=== PATIENT | female | born 1990 | race American Indian/Alaskan Native ===

== ENCOUNTER 2021-07-29 20:11 | Emergency (ER) | payer OTHER ==
[2021-07-29] MEDS ORDERED: Labetalol 100 MG Tab PO ONE (21:07)
[2021-07-29 21:20] VITALS: PULSE 88
--- NOTE | 2021-07-29 21:31 | EDM.PDOC ---
ED HPI GENERAL MEDICAL PROBLEM - General Chief Complaint: Abdominal Pain Stated Complaint: LUMP ON STOMACH Time Seen by Provider: 07/29/21 20:30 Source of Information: Reports: Patient History Limitations: Reports: No Limitations - History of Present Illness INITIAL COMMENTS - FREE TEXT/NARRATIVE: ED with c/o abdominal pain in area of known hernia. no nausea or vomiting. 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 Hx umbilcial hernia since last delivery 10 years ago. Has not seen surgeon. No nause vomiting or fever. BP elevated. States known high blood pressure and is supposed to be on medication but does not follow with Primary care. No headache sx Admits smoking, multiple energy drinks per day. increasing intermittent use of alcohol last drank 3 days ago. Middle Abdomen Pain Score (Numeric/FACES): 5 - Related Data Allergies Allergy/AdvReac Type Severity Reaction Status Date / Time No Known Allergies Allergy Verified 07/29/21 20:40 Home Meds: Home Meds . 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: Hematologic History: Reports: Anemia - Past Surgical History GI Surgical History: Reports: Appendectomy Social & Family History - Family History Family Medical History: No Pertinent Family History - Tobacco Use Tobacco Use Status *Q: Current Every Day Tobacco User Years of Tobacco use: 15 Packs/Tins Daily: 0.5 Used Tobacco, but Quit: No Second Hand Smoke Exposure: Yes - Caffeine Use Caffeine Use: Reports: Coffee, Soda - Alcohol Use Days Per Week of Alcohol Use: 1 Number of Drinks Per Day: 1 Total Drinks Per Week: 1 - Recreational Drug Use Recreational Drug Use: No ED ROS GENERAL - Review of Systems Review Of Systems: Comprehensive ROS is negative, except as noted in HPI. ED EXAM, GI/ABD - Physical Exam Exam: See Below Exam Limited By: No Limitations General Appearance: Alert, Mild Distress Ears: Normal External Exam, Hearing Grossly Normal Throat/Mouth: Normal Inspection Head: Atraumatic, Normocephalic Neck: Normal Inspection Respiratory/Chest: No Respiratory Distress, Normal Breath Sounds Cardiovascular: Normal Peripheral Pulses, Regular Rate, Rhythm GI/Abdominal Exam: Normal Bowel Sounds, Soft, Tender (mild upper periumbical pea size firm [place] mobile ) Back Exam: Normal Inspection Extremities: Normal Inspection Neurological: Alert, Oriented, CN II-XII Intact, Normal Cognition, Normal Gait Psychiatric: Normal Affect, Normal Mood Skin Exam: Warm, Dry, Intact, Normal Color Course - Vital Signs Last Recorded V/S: Last Vital Signs Temp 98.1 F 07/29/21 20:30 Pulse 88 07/29/21 21:41 Resp 16 07/29/21 21:41 BP 149/104 H 07/29/21 21:41 Pulse Ox 100 07/29/21 21:41 - Orders/Labs/Meds Meds: Medications Discontinued Medications Generic Name Dose Route Start Last Admin Trade Name Carie PRN Reason Stop Dose Admin Labetalol HCl 50 mg 07/29/21 21:07 07/29/21 21:19 Labetalol 100 Mg Tab PO 07/29/21 21:08 50 mg ONETIME ONE Administration Departure - Departure Time of Disposition: 21:27 Disposition: Home, Self-Care 01 Condition: Good Clinical Impression: Umbilical hernia Qualifiers: Obstruction and gangrene presence: without obstruction or gangrene Qualified Code(s): K42.9 - Umbilical hernia without obstruction or gangrene - Discharge Information *PRESCRIPTION DRUG MONITORING PROGRAM REVIEWED*: No *COPY OF PRESCRIPTION DRUG MONITORING REPORT IN PATIENT DENNIS: No Instructions: Umbilical Hernia, Adult, Hypertension, Adult Forms: ED Department Discharge Additional Instructions: clinic follow up this week labetolol 50mg twic edaily #5 limit sodium decrease tobacco use abstain from drinking energy drinks tylenol 500mg every 4 hours as needed for discomfort Sepsis Event Note (ED) - Evaluation Sepsis Screening Result: No Definite Risk - Focused Exam Vital Signs: Vital Signs Temp Pulse Pulse Resp BP BP Pulse Ox 07/29/21 21:41 88 16 149/104 H 100 07/29/21 21:19 88 122/88 07/29/21 20:30 98.1 F 102 H 18 144/106 H 97
[2021-07-29 21:42] VITALS: BP 149/104
== END 2021-07-29 21:42 | disposition home or self-care (01) ==
LOC: DL.ED 20:11
DX: K42.9 Umbilical hernia without obstruction or gangrene (principal); I10 Essential (primary) hypertension; J45.909 Unspecified asthma, uncomplicated; Z72.0 Tobacco use
CPT/HCPCS: 99283; A9270

== ENCOUNTER 2021-07-31 02:01 | Emergency (ER) | payer OTHER ==
[2021-07-31] MEDS ORDERED: Sodium Chloride 0.9% 10 ML Syringe FLUSH PRN ×2 (02:04→02:07)
[2021-07-31] MEDS ORDERED: Activated Charcoal/Water Susp 50 GM/240 ML Tube PO ONE (02:06)
--- NOTE | 2021-07-31 02:26 | PCM.EKG ---
#1 Interpretation EKG Date: 07/31/21 Time: 02:17 Rhythm: NSR Rate (Beats/Min): 86 [place]: Normal P-Wave: Present QRS: Normal ST-T: Normal QT: Normal (Early repol on ST segment)
--- NOTE | 2021-07-31 02:29 | EDM.PDOCBH ---
ED HPI GENERAL MEDICAL PROBLEM - General Chief Complaint: Drug or Alcohol Abuse Stated Complaint: POSSIBLE OD Time Seen by Provider: 07/31/21 02:20 Source of Information: Reports: Patient History Limitations: Reports: No Limitations - History of Present Illness INITIAL COMMENTS - FREE TEXT/NARRATIVE: Patient is brought to the emergency department today by her boyfriend with gerry engel of an overdose. This patient approximately 1 hour prior to arrival took a 7-day course of amoxicillin half a tablet of labetalol and a half a tablet of Suboxone an attempt to kill her self. She has never attempted to harm herself in the past. She denies taking any Tylenol or NSAIDs. She denies any other recreational drug use or alcohol usage. She relates she has been struggling with her father's and she misses him so she took these medications in an attempt to kill himself so she will have to deal with this anymore. She denies any chest pain shortness of breath or difficulty breathing. No fever no chills. She did make herself vomit shortly after she took these medicines. She has no abdominal pain no nausea or vomiting at this time. No hematuria dysuria urinary frequency. No black or tarry stools. She was on Suboxone for about a year and then was weaned off she attempted to keep getting more Suboxone although she was unable to get the prescriptions for it so she has been buying it off the street. - Related Data Allergies Allergy/AdvReac Type Severity Reaction Status Date / Time No Known Allergies Allergy Verified 07/31/21 02:26 Home Meds: Home Meds . 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 ED EXAM, BEHAVIORAL HEALTH - Physical Exam Exam: See Below Exam Limited By: No Limitations General Appearance: Alert, WD/WN, No Apparent Distress, Anxious, Thin. No: Obtunded Eye Exam: Bilateral Eye: EOMI, PERRL Ears: Normal External Exam Nose: Normal Inspection Throat/Mouth: Normal Inspection Head: Atraumatic, Normocephalic Neck: Normal Inspection, Supple, Non-Tender, Full Range of Motion Respiratory/Chest: No Respiratory Distress, Lungs Clear, Normal Breath Sounds, No Accessory Muscle Use, Chest Non-Tender Cardiovascular: Normal Peripheral Pulses, Regular Rate, Rhythm GI/Abdominal: Normal Bowel Sounds, Soft, Non-Tender (Female) Exam: Deferred Rectal (Female) Exam: Deferred Back Exam: Normal Inspection, Full Range of Motion. No: CVA Tenderness (L), CVA Tenderness (R) Extremities: Normal Inspection, Normal Range of Motion, Non-Tender, No Pedal Edema, Normal Capillary Refill Neurological: Alert, CN II-XII Intact, Normal Cognition, Normal Reflexes, No Motor/Sensory Deficits, Oriented x 3 Psychiatric: Alert, Normal Cognition, Oriented, Flat Affect, Tearful, Poor Eye Contact, Withdrawn, Suicidal Plan, Suicidal Thoughts. No: Agitated, Disoriented, Inattentive, Flight of Ideas, Homicidal Thoughts, Phobic, Tangential Thoughts, Auditory Hallucinations, Visual Hallucinations, Grandiose Thoughts, Pressured Speech, Paranoid Thoughts, Threatening Behavior Skin Exam: Warm, Dry, Intact, Normal color, No rash COURSE, BEHAVIORAL HEALTH COMP - Course Vital Signs: Last Vital Signs Temp 97.9 F 07/31/21 02:24 Pulse 97 07/31/21 06:19 Resp 14 07/31/21 06:19 BP 109/72 07/31/21 06:19 Pulse Ox 94 L 07/31/21 06:19 Orders, Labs, Meds: Active Orders 24 hr Category Date Time Status Peripheral IV Care [RC] . DIRECTED Care 07/31/21 02:05 Active Peripheral IV Care [RC] . DIRECTED Care 07/31/21 02:07 Active Sodium Chloride 0.9% [Saline Flush] Med 07/31/21 02:04 Active 10 ml FLUSH ASDIRECTED PRN Sodium Chloride 0.9% [Saline Flush] Med 07/31/21 02:07 Active 10 ml FLUSH ASDIRECTED PRN Peripheral IV Insertion Adult [OM.PC] Stat Oth 07/31/21 02:04 Ordered Peripheral IV Insertion Adult [OM.PC] Stat Oth 07/31/21 02:07 Ordered Medication Orders Sodium Chloride (Sodium Chloride 0.9% 10 Ml Syringe) 10 ml FLUSH ASDIRECTED PRN PRN Reason: Keep Vein Open Sodium Chloride (Sodium Chloride 0.9% 10 Ml Syringe) 10 ml FLUSH ASDIRECTED PRN PRN Reason: Keep Vein Open Laboratory Tests 07/31/21 07/31/21 07/31/21 Range/Units 02:12 02:12 02:12 WBC 8.6 (5.0-10.0) 10^3/uL RBC 4.27 (4.2-5.4) 10^6/uL Hgb 12.9 D (12.0-16.0) g/dL Hct 38.6 (37.0-47.0) % MCV 90.4 (80-100) fL MCH 30.2 (27.0-34.0) pg MCHC 33.4 (33.0-35.0) g/dL Plt Count 325 (150-450) 10^3/uL Neut % (Auto) 55.9 (42.2-75.2) % Lymph % (Auto) 30.2 (20.5-50.1) % [place] % (Auto) 9.7 H (2-8) % Eos % (Auto) 3.6 H (1.0-3.0) % Baso % (Auto) 0.6 (0.0-1.0) % Sodium 140 (136-145) mmol/L Potassium 3.6 (3.5-5.1) mmol/L Chloride 104 (98-107) mmol/L Carbon Dioxide 26 (21-32) mmol/L Anion Gap 13.6 H (7-13) mEq/L BUN 19 H (7-18) mg/dL Creatinine 0.93 (0.55-1.02) mg/dL Est Cr Clr Drug Dosing 71.84 mL/min Estimated GFR (MDRD) > 60 BUN/Creatinine Ratio 20.4 (No establ ref range) Glucose 104 H (70-99) mg/dL Calcium 8.4 L (8.5-10.1) mg/dL Total Bilirubin 0.3 (0.2-1.0) mg/dL AST 20 (15-37) U/L ALT 26 (14-59) U/L Alkaline Phosphatase 67 (46-116) U/L Total Protein 7.6 (6.4-8.2) g/dL Albumin 3.9 (3.4-5.0) g/dL Globulin 3.7 Albumin/Globulin Ratio 1.1 Lipase 63 L (73-393) U/L Urine Color (YELLOW) Urine Appearance (CLEAR) Urine pH (5.0-9.0) Ur Specific [place] (1.005-1.030) Urine Protein (NEGATIVE) Urine Glucose (UA) (NEGATIVE) Urine Ketones (NEGATIVE) Urine Occult Blood (NEGATIVE) Urine Nitrite (NEGATIVE) Urine Bilirubin (NEGATIVE) Urine Urobilinogen (0.2-1.0) mg/dL Ur Leukocyte Esterase (NEGATIVE) Salicylates < 2.8 L (2.8-20(Therapeutic)) mg/dL Urine Opiates Screen (NEGATIVE) Ur Oxycodone Screen (NEGATIVE) Urine Methadone Screen (NEGATIVE) Acetaminophen 0 L (10-30 (Therapeutic)) ug/mL Ur Barbiturates Screen (NEGATIVE) U Tricyclic Antidepress (NEGATIVE) Ur Phencyclidine Scrn (NEGATIVE) Ur Amphetamine Screen (NEGATIVE) U Methamphetamines Scrn (NEGATIVE) Urine MDMA Screen (NEGATIVE) U Benzodiazepines Scrn (NEGATIVE) Urine Cocaine Screen (NEGATIVE) U Marijuana (THC) Screen (NEGATIVE) Ethyl Alcohol < 3 (0) mg/dL 07/31/21 07/31/21 07/31/21 Range/Units 05:02 05:02 05:05 WBC (5.0-10.0) 10^3/uL RBC (4.2-5.4) 10^6/uL Hgb (12.0-16.0) g/dL Hct (37.0-47.0) % MCV (80-100) fL MCH (27.0-34.0) pg MCHC (33.0-35.0) g/dL Plt Count (150-450) 10^3/uL Neut % (Auto) (42.2-75.2) % Lymph % (Auto) (20.5-50.1) % [place] % (Auto) (2-8) % Eos % (Auto) (1.0-3.0) % Baso % (Auto) (0.0-1.0) % Sodium 139 (136-145) mmol/L Potassium 3.5 (3.5-5.1) mmol/L Chloride 105 (98-107) mmol/L Carbon Dioxide 26 (21-32) mmol/L Anion Gap 11.5 (7-13) mEq/L BUN 17 (7-18) mg/dL Creatinine 0.72 (0.55-1.02) mg/dL Est Cr Clr Drug Dosing 92.79 mL/min Estimated GFR (MDRD) > 60 BUN/Creatinine Ratio (No establ ref range) Glucose 121 H (70-99) mg/dL Calcium 8.0 L (8.5-10.1) mg/dL Total Bilirubin (0.2-1.0) mg/dL AST (15-37) U/L ALT (14-59) U/L Alkaline Phosphatase (46-116) U/L Total Protein (6.4-8.2) g/dL Albumin (3.4-5.0) g/dL Globulin Albumin/Globulin Ratio Lipase (73-393) U/L Urine Color Yellow (YELLOW) Urine Appearance Turbid (CLEAR) Urine pH 7.0 (5.0-9.0) Ur Specific [place] 1.025 (1.005-1.030) Urine Protein Negative (NEGATIVE) Urine Glucose (UA) Negative (NEGATIVE) Urine Ketones Trace H (NEGATIVE) Urine Occult Blood Negative (NEGATIVE) Urine Nitrite Negative (NEGATIVE) Urine Bilirubin Negative (NEGATIVE) Urine Urobilinogen 0.2 (0.2-1.0) mg/dL Ur Leukocyte Esterase Negative (NEGATIVE) Salicylates < 2.8 L (2.8-20(Therapeutic)) mg/dL Urine Opiates Screen (NEGATIVE) Ur Oxycodone Screen (NEGATIVE) Urine Methadone Screen (NEGATIVE) Acetaminophen 0 L (10-30 (Therapeutic)) ug/mL Ur Barbiturates Screen (NEGATIVE) U Tricyclic Antidepress (NEGATIVE) Ur Phencyclidine Scrn (NEGATIVE) Ur Amphetamine Screen (NEGATIVE) U Methamphetamines Scrn (NEGATIVE) Urine MDMA Screen (NEGATIVE) U Benzodiazepines Scrn (NEGATIVE) Urine Cocaine Screen (NEGATIVE) U Marijuana (THC) Screen (NEGATIVE) Ethyl Alcohol (0) mg/dL 07/31/21 Range/Units 05:05 WBC (5.0-10.0) 10^3/uL RBC (4.2-5.4) 10^6/uL Hgb (12.0-16.0) g/dL Hct (37.0-47.0) % MCV (80-100) fL MCH (27.0-34.0) pg MCHC (33.0-35.0) g/dL Plt Count (150-450) 10^3/uL Neut % (Auto) (42.2-75.2) % Lymph % (Auto) (20.5-50.1) % [place] % (Auto) (2-8) % Eos % (Auto) (1.0-3.0) % Baso % (Auto) (0.0-1.0) % Sodium (136-145) mmol/L Potassium (3.5-5.1) mmol/L Chloride (98-107) mmol/L Carbon Dioxide (21-32) mmol/L Anion Gap (7-13) mEq/L BUN (7-18) mg/dL Creatinine (0.55-1.02) mg/dL Est Cr Clr Drug Dosing mL/min Estimated GFR (MDRD) BUN/Creatinine Ratio (No establ ref range) Glucose (70-99) mg/dL Calcium (8.5-10.1) mg/dL Total Bilirubin (0.2-1.0) mg/dL AST (15-37) U/L ALT (14-59) U/L Alkaline Phosphatase (46-116) U/L Total Protein (6.4-8.2) g/dL Albumin (3.4-5.0) g/dL Globulin Albumin/Globulin Ratio Lipase (73-393) U/L Urine Color (YELLOW) Urine Appearance (CLEAR) Urine pH (5.0-9.0) Ur Specific [place] (1.005-1.030) Urine Protein (NEGATIVE) Urine Glucose (UA) (NEGATIVE) Urine Ketones (NEGATIVE) Urine Occult Blood (NEGATIVE) Urine Nitrite (NEGATIVE) Urine Bilirubin (NEGATIVE) Urine Urobilinogen (0.2-1.0) mg/dL Ur Leukocyte Esterase (NEGATIVE) Salicylates (2.8-20(Therapeutic)) mg/dL Urine Opiates Screen Negative (NEGATIVE) Ur Oxycodone Screen Negative (NEGATIVE) Urine Methadone Screen Negative (NEGATIVE) Acetaminophen (10-30 (Therapeutic)) ug/mL Ur Barbiturates Screen Negative (NEGATIVE) U Tricyclic Antidepress Negative (NEGATIVE) Ur Phencyclidine Scrn Negative (NEGATIVE) Ur Amphetamine Screen Positive H (NEGATIVE) U Methamphetamines Scrn Positive H (NEGATIVE) Urine MDMA Screen Positive H (NEGATIVE) U Benzodiazepines Scrn Negative (NEGATIVE) Urine Cocaine Screen Negative (NEGATIVE) U Marijuana (THC) Screen Negative (NEGATIVE) Ethyl Alcohol (0) mg/dL Medications Generic Name Dose Route Start Last Admin Trade Name Freq PRN Reason Stop Dose Admin Sodium Chloride 10 ml 07/31/21 02:04 Sodium Chloride 0.9% 10 Ml Syringe FLUSH ASDIRECTED PRN Keep Vein Open Sodium Chloride 10 ml 07/31/21 02:07 Sodium Chloride 0.9% 10 Ml Syringe FLUSH ASDIRECTED PRN Keep Vein Open Discontinued Medications Generic Name Dose Route Start Last Admin Trade Name Freq PRN Reason Stop Dose Admin Charcoal 50 gm 07/31/21 02:06 07/31/21 02:53 Activated Charcoal/Water Susp 50 Gm/240 Ml Tube PO 07/31/21 02:07 50 gm ONETIME ONE Administration Re-Assessment/Re-Exam: Although the patient stated she only took a small amount of labetalol as well as Suboxone. The concerns of the labetalol can be quite detrimental. This was ingested under an hour prior to arrival. The patient was given activated charcoal orally. Her EKG was unremarkable. Poison control was contacted and relayed her initial work-up that showed a negative Tylenol level and she is vitally stable. They recommend a repeat Tylenol and basic metabolic panel at 5:00. Her initial CBC is unremarkable. CMP with a mild elevation in anion gap at 13.6 glucose 104 calcium 8.4 normal liver enzymes lipase 63. Initial salicylate and acetaminophen is negative. Alcohol is negative. Her urine drug screen is positive for amphetamines methamphetamines and MDMA. There is no hallucinations or agitations. The patient is medically cleared at 0 530 following a repeat salicylate acetaminophen and metabolic panel. [facility] come and evaluate the patient. The patient agrees to go to the CRU with the Human service staff. She is medically cleared at this time. Advised no recreational drug usage. Contact for safety which the patient agrees to. Departure - Departure Time of Disposition: 06:29 Disposition: DC/Tfer to Other 70 Clinical Impression: Polysubstance abuse Suicide by drug overdose Qualifiers: Encounter type: initial encounter Qualified Code(s): T50.902A - Poisoning by unspecified drugs, medicaments and biological substances, intentional self-harm, initial encounter - Discharge Information Forms: ED Department Discharge Additional Instructions: With [facility] to the [facility]. No methamphatemine or Ectasy usage. Contract for safety with the CRU staff. Return to the ED if new or worsening symptoms. Sepsis Event Note (ED) - Evaluation Sepsis Screening Result: No Definite Risk - Focused Exam Vital Signs: Vital Signs Temp Pulse Resp BP Pulse Ox 07/31/21 06:19 97 14 109/72 94 L 07/31/21 04:01 87 14 122/95 H 95 07/31/21 02:24 97.9 F 91 18 152/121 H 95 - My Orders Last 24 Hours: My Active Orders 07/31/21 02:04 Sodium Chloride 0.9% [Saline Flush] 10 ml FLUSH ASDIRECTED PRN Peripheral IV Insertion Adult [OM.PC] Stat 07/31/21 02:05 Peripheral IV Care [RC] . DIRECTED 07/31/21 02:07 Peripheral IV Care [RC] . DIRECTED Sodium Chloride 0.9% [Saline Flush] 10 ml FLUSH ASDIRECTED PRN Peripheral IV Insertion Adult [OM.PC] Stat - Assessment/Plan Last 24 Hours: My Active Orders 07/31/21 02:04 Sodium Chloride 0.9% [Saline Flush] 10 ml FLUSH ASDIRECTED PRN Peripheral IV Insertion Adult [OM.PC] Stat 07/31/21 02:05 Peripheral IV Care [RC] . DIRECTED 07/31/21 02:07 Peripheral IV Care [RC] . DIRECTED Sodium Chloride 0.9% [Saline Flush] 10 ml FLUSH ASDIRECTED PRN Peripheral IV Insertion Adult [OM.PC] Stat
[2021-07-31 02:36] LABS: ANION GAP 13.6 mEq/L (7-13); CHLORIDE,CL 104 mmol/L (98-107); SODIUM,NA 140 mmol/L (136-145)
[2021-07-31 02:43] LABS: ACETAMINOPHEN 0 ug/mL (10-30 (Therapeutic))
[2021-07-31 05:19] LABS: AMPHETAMINES,URINE POSITIVE (NEGATIVE); BARBITURATES,URINE NEGATIVE (NEGATIVE); BENZODIAZEPINE,URINE NEGATIVE (NEGATIVE); MDMA (ECSTASY), URINE POSITIVE (NEGATIVE); METHADONE,URINE NEGATIVE (NEGATIVE); METHAMPHETAMINES,URINE POSITIVE (NEGATIVE); OPIATES,URINE NEGATIVE (NEGATIVE); OXYCODONE,URINE NEGATIVE (NEGATIVE); PHENCYCLIDINE,URINE NEGATIVE (NEGATIVE); TCA,URINE NEGATIVE (NEGATIVE)
[2021-07-31 05:24] LABS: ANION GAP 11.5 mEq/L (7-13); CHLORIDE,CL 105 mmol/L (98-107); SODIUM,NA 139 mmol/L (136-145)
[2021-07-31 05:29] LABS: ACETAMINOPHEN 0 ug/mL (10-30 (Therapeutic))
[2021-07-31 06:20] VITALS: BP 109/72; PULSE 97
== END 2021-07-31 07:17 | disposition other institution (70) ==
LOC: DL.ED 02:01
DX: T36.0X2A Poisoning by penicillins, intentional self-harm, initial encounter (principal); T40.492A Poisoning by other synthetic narcotics, intentional self-harm, initial encounter; F19.10 Other psychoactive substance abuse, uncomplicated; I10 Essential (primary) hypertension
CPT/HCPCS: 36415; 80048; 80053; 80143; 80179; 80305-QW; 80307; 81003; 83690; 85025; 93005; 99285-25

== ENCOUNTER 2022-12-29 17:18 | Emergency (ER) | payer MEDICAID ==
[2022-12-29] MEDS ORDERED: Sodium Chloride 0.9% 10 ML Syringe FLUSH PRN (17:33)
[2022-12-29] MEDS ORDERED: Albuterol/Ipratropium 3.0-0.5 MG/3 ML Neb Soln NEB ONE (17:35)
[2022-12-29 18:12] LABS: ANION GAP 14.7 mEq/L (7-13); CHLORIDE,CL 106 mmol/L (98-107); SODIUM,NA 140 mmol/L (136-145)
[2022-12-29 18:20] LABS: ESTIMATED GFR 119 mL/min (>=60)
[2022-12-29 19:22] VITALS: BP 138/93; PULSE 94
[2022-12-29 19:22] LABS: AMPHETAMINES,URINE POSITIVE (NEGATIVE); BARBITURATES,URINE NEGATIVE (NEGATIVE); BENZODIAZEPINE,URINE NEGATIVE (NEGATIVE); MDMA (ECSTASY), URINE POSITIVE (NEGATIVE); METHADONE,URINE NEGATIVE (NEGATIVE); METHAMPHETAMINES,URINE POSITIVE (NEGATIVE); OPIATES,URINE NEGATIVE (NEGATIVE); OXYCODONE,URINE NEGATIVE (NEGATIVE); PHENCYCLIDINE,URINE NEGATIVE (NEGATIVE); TCA,URINE NEGATIVE (NEGATIVE)
== END 2022-12-29 19:50 ==
LOC: DL.ED 17:18
DX: D64.9 Anemia, unspecified (principal); I10 Essential (primary) hypertension
CPT/HCPCS: 36415; 36430; 71045; 80053; 80305-QW; 81001; 82607; 83540; 83550; 83605; 83735; 83880; 84145; 84484; 85025; 85610; 85730; 86140; 86850; 86900; 86901; 86920; 86922; 87086; 87088; 87186; 93005; 93010; 94640; 99284; 99285; J3490; J7620-GY; P9016

== ENCOUNTER 2023-06-11 18:42 | Emergency (ER) | payer MEDICAID | END 2023-06-11 19:06 | disposition left against medical advice (07) | LOC: DL.ED 18:42 | DX: Z53.21 Procedure and treatment not carried out due to patient leaving prior to being seen by health care provider (principal) ==

== ENCOUNTER 2023-12-04 22:02 | Emergency (ER) | payer MEDICAID ==
[2023-12-04 22:49] VITALS: BP 167/111; PULSE 84
[2023-12-04 22:59] LABS: BASOPHILS PERCENT AUTO 0.7 % (0.0-1.0); EOSINOPHILS PERCENT AUTO 4.4 % (1.0-3.0); HEMATOCRIT 32.2 % (37.0-47.0); HEMOGLOBIN 9.5 g/dL (12.0-16.0); LYMPHOCYTES PERCENT AUTO 29.6 % (20.5-50.1); MEAN CORPUSCULAR HEMOGLOBIN 20.9 pg (27.0-34.0); MEAN CORPUSCULAR HGB CONC 29.5 g/dL (33.0-35.0); MEAN CORPUSCULAR VOLUME 70.9 fL (80-100); MONOCYTES PERCENT AUTO 9.4 % (2-8); NEUTROPHILS PERCENT AUTO 55.9 % (42.2-75.2); PLATELET COUNT,PLT 581 10^3/uL (150-450); RED BLOOD CELL COUNT 4.54 10^6/uL (4.2-5.4)
[2023-12-04 23:19] LABS: ALBUMIN 3.2 g/dL (3.4-5.0); BILIRUBIN TOTAL 0.1 mg/dL (0.2-1.0); BUN/CREATININE RATIO 36.1 (No establ ref range); CALCIUM 8.1 mg/dL (8.5-10.1); CREATININE 0.61 mg/dL (0.55-1.02); EST CRCL DRUG DOSING (CG) 102.78 mL/min; MAGNESIUM 1.8 mg/dL (1.8-2.4); PROTEIN TOTAL,TP 7.2 g/dL (6.4-8.2)
[2023-12-04 23:22] LABS: A/G RATIO 0.8
[2023-12-04] MEDS ORDERED: GI Cocktail Oral Solution 30 ML PO ONE (23:26)
== END 2023-12-05 00:33 | disposition home or self-care (01) ==
LOC: DL.ED 22:02
DX: R07.2 Precordial pain (principal); I10 Essential (primary) hypertension; J45.909 Unspecified asthma, uncomplicated; F17.210 Nicotine dependence, cigarettes, uncomplicated; Z86.16 Personal history of COVID-19; Z90.49 Acquired absence of other specified parts of digestive tract; Z79.899 Other long term (current) drug therapy
CPT/HCPCS: 36415; 71045; 80053; 83690; 83735; 84484; 85025; 93005; 93010; 99284; 99285; A9270

== ENCOUNTER 2024-01-14 17:05 | Emergency (ER) | payer SELFPAY | END 2024-01-14 18:20 | LOC: DL.ED 17:05 | DX: Z53.21 Procedure and treatment not carried out due to patient leaving prior to being seen by health care provider (principal) ==

== ENCOUNTER 2024-03-05 20:47 | Emergency (ER) | payer SELFPAY | END 2024-03-05 22:30 | disposition left against medical advice (07) | LOC: DL.ED 20:47 | DX: Z53.21 Procedure and treatment not carried out due to patient leaving prior to being seen by health care provider (principal) ==

== ENCOUNTER 2024-05-24 21:36 | Emergency (ER) | payer MEDICAID ==
[2024-05-24] MEDS: Sodium Chloride 0.9% 10 ML Syringe FLUSH PRN (21:48)
[2024-05-24 21:57] LABS: BASOPHILS PERCENT AUTO 0.9 % (0.0-1.0); EOSINOPHILS PERCENT AUTO 1.6 % (1.0-3.0); LYMPHOCYTES PERCENT AUTO 31.4 % (20.5-50.1); MEAN CORPUSCULAR HEMOGLOBIN 18.7 pg (27.0-34.0); MEAN CORPUSCULAR HGB CONC 27.7 g/dL (33.0-35.0); MEAN CORPUSCULAR VOLUME 67.3 fL (80-100); MONOCYTES PERCENT AUTO 5.2 % (2-8); NEUTROPHILS PERCENT AUTO 60.9 % (42.2-75.2); PLATELET COUNT,PLT 719 10^3/uL (150-450); RED BLOOD CELL COUNT 2.57 10^6/uL (4.2-5.4); WHITE BLOOD CELL COUNT,WBC 8.5 10^3/uL (5.0-10.0)
[2024-05-24 22:06] LABS: HEMATOCRIT 17.3 % (37.0-47.0); HEMOGLOBIN 4.8 g/dL (12.0-16.0)
[2024-05-24 22:22] LABS: INR 0.9 (0.9-1.2); LACTIC ACID 1.1 mmol/L (0.4-2.0); PROTHROMBIN TIME 9.7 SEC (9.0-12.0); PTT,PARTIAL THROMBOPLSTIN TIME 21.5 SEC (22.0-34.0)
[2024-05-24 22:25] LABS: A/G RATIO 0.65; ALANINE AMINOTRANSFERASE,ALT 46 U/L (14-59); ALBUMIN 2.8 g/dL (3.4-5.0); ALKALINE PHOSPHATASE 99 U/L (46-116); ANION GAP 11.4 mEq/L (7-13); ASPARTATE AMNIOTRANSFERASE,AST 27 U/L (15-37); BILIRUBIN TOTAL 0.2 mg/dL (0.2-1.0); BLOOD UREA NITROGEN,BUN 21 mg/dL (7-18); BUN/CREATININE RATIO 20.4 (No establ ref range); CALCIUM 8.7 mg/dL (8.5-10.1); CARBON DIOXIDE,CO2 27 mmol/L (21-32); CHLORIDE,CL 102 mmol/L (98-107); CREATININE 1.03 mg/dL (0.55-1.02); EST CRCL DRUG DOSING (CG) 60.29 mL/min; ESTIMATED GFR 73 mL/min (>=60); ETHANOL BLOOD MEDICAL < 3 mg/dL (0); GLUCOSE RANDOM 114 mg/dL (70-99); MAGNESIUM 1.8 mg/dL (1.8-2.4); POTASSIUM,K 3.4 mmol/L (3.5-5.1); PROTEIN TOTAL,TP 7.1 g/dL (6.4-8.2); SODIUM,NA 137 mmol/L (136-145)
[2024-05-24 22:28] LABS: C-REACTIVE PROTEIN < 0.50 ng/dL (<=0.50)
[2024-05-25] LABS: FOLIC ACID 18.7 ng/mL (8.6-58.9); TSH ULTRASENSITIVE 6.61 uIU/mL (0.36-3.74)
[2024-05-25] MEDS: Furosemide 40 MG/4 ML VIAL IV ONE (01:32)
[2024-05-25] MEDS: Potassium Chloride 10 MEQ Tab.ER PO ONE (01:34)
[2024-05-25 02:14] LABS: AMPHETAMINES,URINE POSITIVE (NEGATIVE); BARBITURATES,URINE NEGATIVE (NEGATIVE); BENZODIAZEPINE,URINE NEGATIVE (NEGATIVE); MDMA (ECSTASY), URINE NEGATIVE (NEGATIVE); METHADONE,URINE NEGATIVE (NEGATIVE); METHAMPHETAMINES,URINE POSITIVE (NEGATIVE); OPIATES,URINE NEGATIVE (NEGATIVE); OXYCODONE,URINE NEGATIVE (NEGATIVE); PHENCYCLIDINE,URINE NEGATIVE (NEGATIVE); TCA,URINE NEGATIVE (NEGATIVE)
[2024-05-25] MEDS: Ibuprofen 600 MG Tab PO ONE (04:15)
[2024-05-25 07:25] LABS: BASOPHILS PERCENT AUTO 0.8 % (0.0-1.0); EOSINOPHILS PERCENT AUTO 3.1 % (1.0-3.0); HEMATOCRIT 29.2 % (37.0-47.0); HEMOGLOBIN 9.1 g/dL (12.0-16.0); MEAN CORPUSCULAR HEMOGLOBIN 24.1 pg (27.0-34.0); MEAN CORPUSCULAR HGB CONC 31.2 g/dL (33.0-35.0); MEAN CORPUSCULAR VOLUME 77.2 fL (80-100); MONOCYTES PERCENT AUTO 11.6 % (2-8); NEUTROPHILS PERCENT AUTO 59.5 % (42.2-75.2); PLATELET COUNT,PLT 456 10^3/uL (150-450); RED BLOOD CELL COUNT 3.78 10^6/uL (4.2-5.4); WHITE BLOOD CELL COUNT,WBC 7.5 10^3/uL (5.0-10.0)
[2024-05-25] MEDS: Ferrous Sulfate 325 MG Tab PO ONE (08:19)
[2024-05-25 08:32] VITALS: BP 155/108; PULSE 80
== END 2024-05-25 08:25 | disposition home or self-care (01) ==
LOC: DL.ED 21:36
DX: D50.9 Iron deficiency anemia, unspecified (principal); E87.6 Hypokalemia; F15.10 Other stimulant abuse, uncomplicated; R94.6 Abnormal results of thyroid function studies; I10 Essential (primary) hypertension; Z79.899 Other long term (current) drug therapy; Z86.16 Personal history of COVID-19
CPT/HCPCS: 36415; 36430; 71045; 80053; 80305; 80307; 81025; 82272; 82607; 82728; 82746; 83605; 83735; 84443; 84484; 85025; 85610; 85730; 86140; 86850; 86900; 86901; 86920; 86922; 93005; 93010; 96374; 99285; A9270; J1940; P9016; J3490

== ENCOUNTER 2024-06-11 01:28 | Emergency (ER) | payer MEDICAID ==
[2024-06-11] MEDS: Sodium Chloride 0.9% 10 ML Syringe FLUSH PRN (02:16)
[2024-06-11] MEDS: Sodium Chloride 0.9% 1,000 ML IV ONE (02:16)
[2024-06-11 02:21] LABS: BASOPHILS PERCENT AUTO 0.3 % (0.0-1.0); EOSINOPHILS PERCENT AUTO 2.1 % (1.0-3.0); HEMATOCRIT 29.1 % (37.0-47.0); LYMPHOCYTES PERCENT AUTO 11.5 % (20.5-50.1); MEAN CORPUSCULAR HEMOGLOBIN 23.4 pg (27.0-34.0); MEAN CORPUSCULAR HGB CONC 30.9 g/dL (33.0-35.0); MEAN CORPUSCULAR VOLUME 75.6 fL (80-100); MONOCYTES PERCENT AUTO 14.1 % (2-8); PLATELET COUNT,PLT 467 10^3/uL (150-450); RED BLOOD CELL COUNT 3.85 10^6/uL (4.2-5.4); WHITE BLOOD CELL COUNT,WBC 14.5 10^3/uL (5.0-10.0)
[2024-06-11 02:24] LABS: APPEARANCE,URINE CLEAR (CLEAR); BILIRUBIN,URINE NEGATIVE (NEGATIVE); COLOR,URINE YELLOW (YELLOW); GLUCOSE,URINE NEGATIVE (NEGATIVE); KETONES,URINE NEGATIVE (NEGATIVE); LEUKOCYTE ESTERASE,URINE TRACE (NEGATIVE); NITRITE,URINE NEGATIVE (NEGATIVE); OCCULT BLOOD,URINE TRACE-INTACT (NEGATIVE); PROTEIN,URINE 100 (NEGATIVE)
[2024-06-11 02:37] LABS: BACTERIA,URINE MANY /HPF (0-FEW/HPF); EPITHELIAL CELLS,URINE FEW /HPF (NOT SEEN); WBC,URINE 20-30 /HPF (0-5/HPF)
[2024-06-11 02:50] LABS: ALBUMIN 2.6 g/dL (3.4-5.0); ANION GAP 12.1 mEq/L (7-13); BILIRUBIN TOTAL 0.5 mg/dL (0.2-1.0); BUN/CREATININE RATIO 19.8 (No establ ref range); CALCIUM 8.6 mg/dL (8.5-10.1); CREATININE 0.86 mg/dL (0.55-1.02); EST CRCL DRUG DOSING (CG) 72.21 mL/min; POTASSIUM,K 4.1 mmol/L (3.5-5.1); PROTEIN TOTAL,TP 7.4 g/dL (6.4-8.2); TSH ULTRASENSITIVE 1.42 uIU/mL (0.36-3.74)
[2024-06-11 03:03] LABS: A/G RATIO 0.54
[2024-06-11 03:15] LABS: INR 0.9 (0.9-1.2); PROTHROMBIN TIME 9.8 SEC (9.0-12.0)
[2024-06-11] MEDS: cefTRIAXone 1 GM Vial IVPUSH ONE (03:23)
[2024-06-11 03:24] VITALS: BP 138/87; PULSE 112
[2024-06-11 03:29] LABS: PTT,PARTIAL THROMBOPLSTIN TIME 28.2 SEC (22.0-34.0)
== END 2024-06-11 03:36 | disposition home or self-care (01) ==
LOC: DL.ED 01:28
DX: N39.0 Urinary tract infection, site not specified (principal); I10 Essential (primary) hypertension; Z86.16 Personal history of COVID-19; Z90.49 Acquired absence of other specified parts of digestive tract
CPT/HCPCS: 36415; 80053; 81001; 81025; 84443; 85025; 85610; 85730; 87040; 87086; 87088; 87186; 96361; 96374; 99284; J0696; J7030; J3490

== ENCOUNTER 2024-08-20 07:38 | Emergency (ER) | payer MEDICAID ==
[2024-08-20] MEDS: Acetaminophen/HYDROcodone 325-10 MG Tab PO ONE (08:05)
[2024-08-20 08:11] VITALS: BP 155/114; PULSE 96
== END 2024-08-20 08:45 | disposition home or self-care (01) ==
LOC: DL.ED 07:38
DX: S80.01XA Contusion of right knee, initial encounter (principal); S80.211A Abrasion, right knee, initial encounter; I10 Essential (primary) hypertension; Z79.899 Other long term (current) drug therapy; Z86.16 Personal history of COVID-19; Z90.49 Acquired absence of other specified parts of digestive tract; W10.8XXA Fall (on) (from) other stairs and steps, initial encounter
CPT/HCPCS: 73562-RT; 99283; A9270-GY

== ENCOUNTER 2025-01-23 02:34 | Emergency (ER) | payer MEDICAID | END 2025-01-23 04:30 | disposition left against medical advice (07) | LOC: DL.ED 02:34 | DX: Z53.21 Procedure and treatment not carried out due to patient leaving prior to being seen by health care provider (principal) ==

== ENCOUNTER 2025-03-30 18:31 | Emergency (ER) | payer MEDICAID ==
[2025-03-30 18:43] VITALS: BP 136/92; PULSE 107
[2025-03-30] MEDS: Amoxicillin 500 MG Cap PO ONE (18:46)
== END 2025-03-30 18:48 | disposition home or self-care (01) ==
LOC: DL.ED 18:31
DX: J02.9 Acute pharyngitis, unspecified (principal); I10 Essential (primary) hypertension; Z79.899 Other long term (current) drug therapy; Z86.16 Personal history of COVID-19; Z90.49 Acquired absence of other specified parts of digestive tract
CPT/HCPCS: 99283; A9270; 99282

== ENCOUNTER 2025-03-31 19:16 | Emergency (ER) | payer MEDICAID ==
[2025-03-31 19:37] VITALS: BP 175/116; PULSE 128
[2025-03-31] MEDS ORDERED: Take Home: Doxycycline 100 MG Cap, 4 Cap Pack PO ONE ×2 (20:37→20:40)
[2025-03-31] MEDS: Doxycycline Monohydrate 100 MG Cap PO ONE (20:45)
[2025-03-31] MEDS: cefTRIAXone 1 GM Vial ONE (20:45)
[2025-03-31] MEDS: Lidocaine 1% 5 ML VIAL ONE (20:45)
== END 2025-03-31 20:50 | disposition home or self-care (01) ==
LOC: DL.ED 19:16
DX: A54.9 Gonococcal infection, unspecified (principal); A74.9 Chlamydial infection, unspecified; I10 Essential (primary) hypertension; J45.909 Unspecified asthma, uncomplicated; Z86.16 Personal history of COVID-19; Z90.49 Acquired absence of other specified parts of digestive tract; Z79.899 Other long term (current) drug therapy
CPT/HCPCS: 36415; 86308; 87081; 87430; 99283; 99284; A9270; J0696; J2003

== ENCOUNTER 2025-04-21 19:25 | Emergency (ER) | payer MEDICAID ==
[2025-04-21 19:35] VITALS: BP 196/122; PULSE 85
[2025-04-21] MEDS: Methylnaltrexone 12 MG/0.6 ML SDV SUBCUT ONE (20:13)
[2025-04-21] MEDS: Lactulose Soln 10 GM/15 ML 30 ML UD Cup PO ONE (20:13)
== END 2025-04-21 20:32 | disposition home or self-care (01) ==
LOC: DL.ED 19:25
DX: K59.00 Constipation, unspecified (principal); I10 Essential (primary) hypertension; F17.200 Nicotine dependence, unspecified, uncomplicated; Z79.899 Other long term (current) drug therapy; Z86.16 Personal history of COVID-19
CPT/HCPCS: 74018; 96372; 99283; 99284; A9270; J2212-GY